=== PATIENT | male | born 2000 | race Caucasian/White ===

== ENCOUNTER 2022-08-09 06:51 | Emergency (ER) | payer OTHER ==
[~2022-08-09] VITALS: Ht 175.3 cm; Wt 113.0 kg
[2022-08-09] MEDS ORDERED: ONDANSETRON 4MG ORAL DISINTEGRATING TAB PO ONE (07:50)
[2022-08-09] MEDS ORDERED: ONDA4TAB6 PO (08:48)
[2022-08-09] MEDS ORDERED: KETOROLAC TROMETHAMINE 10 MG TAB PO ONE (08:55)
[2022-08-09 09:13] VITALS: BP 140/68
== END 2022-08-09 09:14 | disposition home or self-care (01) ==
LOC: M ED 06:51
DX: R31.9 Hematuria, unspecified (principal)

== ENCOUNTER 2023-02-24 11:01 | Emergency (ER) | payer OTHER ==
[~2023-02-24] VITALS: Ht 175.3 cm; Wt 115.8 kg
[~2023-02-24 11:01] MED LIST: ONDA4TAB6 PO
[2023-02-24 11:02] VITALS: BP 139/89; TEMP 97.8; O2SAT 97
[2023-02-24] MEDS ORDERED: AMOX875T2 PO (13:39)
[2023-02-24] MEDS ORDERED: NEOSPORIN OINT 0.9 GM PKT TOP ONE (13:40)
== END 2023-02-24 13:53 | disposition home or self-care (01) ==
LOC: M ED 11:01
DX: S50.311A Abrasion of right elbow, initial encounter (principal); Y04.8XXA Assault by other bodily force, initial encounter; Y92.89 Other specified places as the place of occurrence of the external cause; Y93.F9 Activity, other caregiving; Y99.8 Other external cause status; Z79.899 Other long term (current) drug therapy

== ENCOUNTER → 2023-04-14 | Outpatient (REF) ==
[~2023-04-14] MED LIST changes: +AMOX875T2 PO
== END ==
LOC: M EMP 13:08
PROVIDERS: ATTEND Family Medicine
DX: Z11.52 Encounter for screening for COVID-19 (principal)

== ENCOUNTER → 2023-10-16 | Outpatient (REF) | payer OTHER ==
[2023-10-16 18:40] LABS: BASO % 0.2 % (0.0-1.0); EOS # 0.1 10^3/uL (0.0-0.5); EOS % 1.2 % (0.0-3.0); HEMATOCRIT 44.3 % (42.0-52.0); LYMPH # 2.1 10^3/uL (1.5-5.0); LYMPH % 32.4 % (24.0-44.0); MEAN CORPUSCULAR HEMOGLOBIN 29.8 pg (27.0-33.0); MEAN CORPUSCULAR HGB CONC 33.9 g/dl (32.0-36.5); MEAN CORPUSCULAR VOLUME 88.1 fl (80.0-96.0); MONO # 0.6 10^3/uL (0.0-0.8); MONO % 8.3 % (2.0-8.0); NEUTROPHILS # 3.8 10^3/uL (1.5-8.5); NEUTROPHILS % 57.4 % (36.0-66.0); PLATELET COUNT, AUTOMATED 274 10^3/uL (150-450); RED BLOOD COUNT 5.03 10^6/uL (4.30-6.10); WHITE BLOOD COUNT 6.6 10^3/uL (4.0-10.0)
[2023-10-16 18:44] LABS: HEMOGLOBIN A1c 5.4 % (4.0-6.0)
[2023-10-16 19:05] LABS: ALBUMIN 4.2 G/DL (3.2-5.2); ALKALINE PHOSPHATASE 52 U/L (46-116); ALT/SGPT 35 U/L (7.0-40); AST/SGOT 16 U/L (<34); BILIRUBIN,TOTAL 0.4 MG/DL (0.3-1.2); BLOOD UREA NITROGEN 15 MG/DL (9-23); CALCIUM LEVEL 9.2 MG/DL (8.5-10.1); CARBON DIOXIDE LEVEL 28 MMOL/L (20-31); CHLORIDE LEVEL 106 MMOL/L (98-107); CHOLESTEROL LEVEL 164 MG/DL (<200); CHOLESTEROL RISK RATIO 5.34 (<5); CREATININE FOR GFR 0.74 MG/DL (0.70-1.30); GLOMERULAR FILTRATION RATE > 60.0 (>60); GLUCOSE, FASTING 98 MG/DL (60-100); HDL CHOLESTEROL 30.7 MG/DL (>40); LDL CHOLESTEROL 69.3 MG/DL (<100); MAGNESIUM LEVEL 1.9 MG/DL (1.8-2.4); NON-HDL-C 133.3 MG/DL; POTASSIUM SERUM 4.1 MMOL/L (3.5-5.1); SODIUM LEVEL 139 MMOL/L (136-145); TOTAL PROTEIN 7.2 G/DL (5.7-8.2); TRIGLYCERIDES LEVEL 320 MG/DL (<150)
[2023-10-16 19:07] LABS: THYROID STIMULATING HORMONE 5.147 uIU/ML (0.55-4.78); TOTAL 25(OH) VITAMIN D 10.4 NG/ML (20.0-100.0)
[2023-10-16 19:39] LABS: HEPATITIS C VIRUS ABY INDEX < 0.02 INDEX (<0.8)
== END ==
LOC: M LAB REF 18:03
PROVIDERS: ATTEND Physician Assistant
DX: E66.9 Obesity, unspecified (principal); R03.0 Elevated blood-pressure reading, without diagnosis of hypertension; Z11.9 Encounter for screening for infectious and parasitic diseases, unspecified; E55.9 Vitamin D deficiency, unspecified; R53.83 Other fatigue

== ENCOUNTER → 2024-02-10 | Outpatient (REF) | payer OTHER ==
[~2024-02-10] MED LIST changes: +ONDA-282 PO; -ONDA4TAB6 PO
[2024-02-10 14:19] LABS: CREATININE, URINE 376.1 MG/DL; MAU/CREAT RATIO 2.3 MCG/MG (0.0-30.0)
== END ==
LOC: M LAB REF 12:30
PROVIDERS: ATTEND Physician Assistant
DX: I10 Essential (primary) hypertension (principal)